=== PATIENT | male | born 1940 | race Caucasian/White ===

== ENCOUNTER 2019-08-06 08:40 | Emergency (ER) | payer MEDICARE, BC ==
[~2019-08-06] VITALS: Ht 185.4 cm; Wt 104.0 kg
[~2019-08-06 08:40] MED LIST: ESCI10TA PO; HYDR12.55 PO; LOVA20TA2 PO; MULT-1179 PO
[2019-08-06 09:20] LABS: BASOPHILS % (AUTO) 1.1 % (0-1); EOSINOPHILS # (AUTO) 0.2 X10'3 (0-0.9); EOSINOPHILS % (AUTO) 5.4 % (0-6); HEMATOCRIT 38.7 % (42.0-52.0); HEMOGLOBIN 12.9 g/dl (14.0-17.9); LYMPHOCYTES # (AUTO) 0.7 X10'3 (1.1-4.8); LYMPHOCYTES % (AUTO) 15.9 % (21-51); MEAN CORPUSCULAR HEMOGLOBIN 31.5 PG (27.0-31.0); MEAN CORPUSCULAR HGB CONC 33.2 g/dL (33.0-36.5); MEAN CORPUSCULAR VOLUME 94.9 FL (78-98); MONOCYTES # (AUTO) 0.4 X10'3 (0-0.9); MONOCYTES % (AUTO) 10.4 % (2-12); NEUTROPHILS # (AUTO) 2.8 X10'3 (1.8-7.7); NEUTROPHILS % (AUTO) 67.2 % (42-75); PLATELET COUNT 118 X10'3 (140-440); RED BLOOD COUNT 4.07 X10'6 (4.70-6.10); RED CELL DISTRIBUTION WIDTH 13.4 % (11.5-14.5); WHITE BLOOD COUNT 4.1 X10'3 (4.5-11.0)
[2019-08-06 09:35] LABS: ALANINE AMINOTRANSFERASE 22 U/L (12-78); ALBUMIN 3.2 G/DL (3.4-5.0); ALKALINE PHOSPHATASE 49 IU/L (46-116); ANION GAP 8 (8-16); ASPARTATE AMINO TRANSFERASE 26 U/L (10-37); BILIRUBIN,TOTAL 0.7 MG/DL (0.1-1.0); BLOOD UREA NITROGEN 23 MG/DL (7-18); BUN/CREATININE RATIO 15.1 (5.4-32.0); CALCIUM 8.3 MG/DL (8.5-10.1); CHLORIDE 108 MMOL/L (99-107); CREATININE 1.52 MG/DL (0.60-1.10); GLUCOSE 100 MG/DL (70-104); SODIUM 142 MMOL/L (135-145); TOTAL CARBON DIOXIDE 25.8 MMOL/L (24-32); TOTAL PROTEIN 6.5 G/DL (6.4-8.2); eGFR 44 ML/MIN
[2019-08-06] MEDS ORDERED: APIX5TAB3 PO (13:09)
[2019-08-06 13:21] VITALS: BP 153/62
== END 2019-08-06 13:24 | disposition home or self-care (01) ==
LOC: ER 08:41
DX: I82.812 Embolism and thrombosis of superficial veins of left lower extremity (principal); E78.00 Pure hypercholesterolemia, unspecified; I10 Essential (primary) hypertension; Z98.890 Other specified postprocedural states; Z79.899 Other long term (current) drug therapy
CPT/HCPCS: 36415; 80053; 85025; 85610; 93971; 99284

== ENCOUNTER 2021-09-11 16:10 | Inpatient (IN) | payer MEDICARE, BC ==
[~2021-09-11] VITALS: Ht 182.9 cm; Wt 93.0 kg
[~2021-09-11 16:10] MED LIST changes: +APIX5TAB3 PO
[2021-09-11 16:49] LABS: BASOPHILS % (AUTO) 0.9 % (0-1); EOSINOPHILS # (AUTO) 0.1 X10'3 (0-0.9); EOSINOPHILS % (AUTO) 1.4 % (0-6); HEMATOCRIT 44.1 % (42.0-52.0); HEMOGLOBIN 14.7 g/dl (14.0-17.9); LYMPHOCYTES # (AUTO) 0.3 X10'3 (1.1-4.8); LYMPHOCYTES % (AUTO) 6.2 % (21-51); MEAN CORPUSCULAR HEMOGLOBIN 33.3 PG (27.0-31.0); MEAN CORPUSCULAR HGB CONC 33.4 g/dL (33.0-36.5); MEAN CORPUSCULAR VOLUME 99.5 FL (78-98); MEAN PLATELET VOLUME 8.9 FL (7.4-10.4); MONOCYTES # (AUTO) 0.4 X10'3 (0-0.9); MONOCYTES % (AUTO) 8.3 % (2-12); NEUTROPHILS # (AUTO) 4.5 X10'3 (1.8-7.7); NEUTROPHILS % (AUTO) 83.2 % (42-75); PLATELET COUNT 133 X10'3 (140-440); RED BLOOD COUNT 4.43 X10'6 (4.70-6.10); RED CELL DISTRIBUTION WIDTH 15.9 % (11.5-14.5); WHITE BLOOD COUNT 5.4 X10'3 (4.5-11.0)
[2021-09-11 17:17] LABS: ALANINE AMINOTRANSFERASE 217 U/L (12-78); ALBUMIN/GLOBULIN RATIO 0.9 (1.1-1.5); ALKALINE PHOSPHATASE 51 IU/L (46-116); ANION GAP 16 (8-16); ASPARTATE AMINO TRANSFERASE 150 U/L (10-37); BILIRUBIN,TOTAL 1.5 MG/DL (0.1-1.0); BLOOD UREA NITROGEN 34 MG/DL (7-18); BUN/CREATININE RATIO 13.1 (5.4-32.0); CHLORIDE 101 MMOL/L (99-107); CREATININE 2.59 MG/DL (0.60-1.10); GLUCOSE 149 MG/DL (70-104); POTASSIUM 5.2 MMOL/L (3.5-5.1); SODIUM 136 MMOL/L (135-145); TOTAL CARBON DIOXIDE 19.1 MMOL/L (24-32); TOTAL PROTEIN 6.3 G/DL (6.4-8.2); eGFR 24 ML/MIN
[2021-09-11] MEDS ORDERED: furosemide 40mg/4ml inj IV ONE (17:40)
[2021-09-11] MEDS ORDERED: furosemide 10 MG/1 ML 10ml inj IV ONE (17:40)
[2021-09-11] MEDS ORDERED: LIDOcaine 2% 10ml TOPICAL JELLY (Urojet) TP ONE (18:05)
[2021-09-11] MEDS ORDERED: ondansetron/PF 4mg/2ml inj IV PRN (18:10)
[2021-09-11] MEDS ORDERED: magnesium hydroxide 30ml (MOM) UD suspension PO PRN (18:10)
[2021-09-11] MEDS ORDERED: acetaminophen 325mg tablet PO PRN ×2 (18:10)
[2021-09-11] MEDS ORDERED: morphine 2 MG/ML inj. syringe IV PRN ×2 (18:10)
[2021-09-11] MEDS ORDERED: mag hydrox/Alum hydrox/simeth 30ml oral suspension PO PRN (18:10)
[2021-09-11] MEDS ORDERED: LORA-268 PO (18:31)
[2021-09-11] MEDS ORDERED: SOTA80TA73 PO (18:31)
[2021-09-11] MEDS ORDERED: FLEC100T2 PO (18:31)
[2021-09-11] MEDS ORDERED: METO50TA16 PO (18:31)
[2021-09-11] MEDS ORDERED: ESCI20TA39 PO (18:31)
[2021-09-11] MEDS ORDERED: APIX5TAB3 PO (18:31)
[2021-09-11] MEDS ORDERED: LEVO75TA7 PO (18:31)
--- NOTE | 2021-09-11 19:25 | NUR ---
Patient resting comfortably on gurney, at bedside. Butler placed w/o problem and pending admit to the floor. I will continue to monitor.
[2021-09-11] MEDS: docusate sod 100mg capsule PO SCH (20:22)
--- NOTE | 2021-09-11 22:10 | NUR ---
Received report from IRENA Rosuseau. Awaiting patient arrival to the floor
[2021-09-11 22:50] VITALS: BP_SYST 87; BP_SYST 88; BP_SYST 91; BP_DIAS 57; BP_DIAS 67; BP_DIAS 68
--- NOTE | 2021-09-11 22:50 | NUR ---
Patient arrived to the floor via gurney accompanied by HOSPITAL NURSE. Placed in room 3019L. Patient awake and alert on 2L NC, in no apparent distress. Call light and items of frequent use within reach. Will continue to monitor
[2021-09-12] VITALS (13 sets, daily range): BP systolic 97–125; BP diastolic 44–77
[2021-09-12 04:37] LABS: BASOPHILS % (AUTO) 0.3 % (0-1); EOSINOPHILS % (AUTO) 0.1 % (0-6); HEMATOCRIT 43.9 % (42.0-52.0); HEMOGLOBIN 14.7 g/dl (14.0-17.9); LYMPHOCYTES # (AUTO) 0.4 X10'3 (1.1-4.8); LYMPHOCYTES % (AUTO) 5.3 % (21-51); MEAN CORPUSCULAR HEMOGLOBIN 33.1 PG (27.0-31.0); MEAN CORPUSCULAR HGB CONC 33.5 g/dL (33.0-36.5); MEAN CORPUSCULAR VOLUME 98.8 FL (78-98); MEAN PLATELET VOLUME 9.4 FL (7.4-10.4); MONOCYTES # (AUTO) 0.6 X10'3 (0-0.9); MONOCYTES % (AUTO) 8.7 % (2-12); NEUTROPHILS # (AUTO) 6.2 X10'3 (1.8-7.7); NEUTROPHILS % (AUTO) 85.6 % (42-75); PLATELET COUNT 120 X10'3 (140-440); RED BLOOD COUNT 4.44 X10'6 (4.70-6.10); RED CELL DISTRIBUTION WIDTH 15.5 % (11.5-14.5); WHITE BLOOD COUNT 7.3 X10'3 (4.5-11.0)
[2021-09-12 04:50] LABS: ALANINE AMINOTRANSFERASE 639 U/L (12-78); ALBUMIN 3.1 G/DL (3.4-5.0); ALKALINE PHOSPHATASE 60 IU/L (46-116); ANION GAP 13 (8-16); ASPARTATE AMINO TRANSFERASE 647 U/L (10-37); BILIRUBIN,TOTAL 1.7 MG/DL (0.1-1.0); BLOOD UREA NITROGEN 42 MG/DL (7-18); BUN/CREATININE RATIO 14.8 (5.4-32.0); CALCIUM 8.2 MG/DL (8.5-10.1); CHLORIDE 104 MMOL/L (99-107); CREATININE 2.84 MG/DL (0.60-1.10); GLUCOSE 115 MG/DL (70-104); POTASSIUM 5.4 MMOL/L (3.5-5.1); SODIUM 137 MMOL/L (135-145); TOTAL CARBON DIOXIDE 20.2 MMOL/L (24-32); TOTAL PROTEIN 6.2 G/DL (6.4-8.2); eGFR 21 ML/MIN
--- NOTE | 2021-09-12 06:10 | NUR ---
Problems reprioritized. Patient report given, questions answered & plan of care reviewed with IRENA Diaz.
--- NOTE | 2021-09-12 06:30 | NUR ---
Patient in room PCU 3017. I have received report from Mirian OSBORN and had the opportunity to ask questions and assume patient care. Patient resting comfortably in bed, all needs met at this time.
[2021-09-12] MEDS ORDERED: levoTHYROXINE 25mcg tablet PO SCH (07:00)
[2021-09-12] MEDS: docusate sod 100mg capsule PO SCH ×2 (07:23→20:23)
[2021-09-12] MEDS: furosemide 40mg/4ml inj IV SCH ×3 (07:23→20:00)
[2021-09-12] MEDS ORDERED: enoxaparin 40mg/0.4ml syringe SUBCUT SCH (08:00)
--- NOTE | 2021-09-12 10:46 | NUR ---
Page Sent PAGER ID: [phone] MESSAGE: Room 3017A; Efrain Gan: Home med rec is complete and ready for conversion. [place] [id number]
[2021-09-12] MEDS ORDERED: flecainide 50mg tablet PO SCH (11:10)
[2021-09-12] MEDS ORDERED: LORazepam 0.5 MG tablet PO PRN (13:05)
--- NOTE | 2021-09-12 13:21 | NUR ---
PAGER ID: [phone] MESSAGE: Room 3017A; Efrain Gan: Patient is asking to eat, unsure of plan for patient as far as keeping NPO status for potential procedure today. [place] [id number]. Patient and patients (at bedside) are inquiring on status of procedure. Paged doctor.
[2021-09-12] MEDS ORDERED: MIDAZolam 1mg/ml 10ml vial IV ONE (13:30)
[2021-09-12] MEDS ORDERED: fentaNYL/PF 50MCG/1 ML 2ML syringe IV ONE (13:30)
--- NOTE | 2021-09-12 18:01 | NUR ---
Student documentation: I have reviewed and agree with all interventions, assessments performed and documented by Sacha Baltazar.
--- NOTE | 2021-09-12 18:02 | NUR ---
Student Medication Administration: For this medication-pass time frame, all medication were reviewed, dispensed, administered and documented per hospital policy by Xavier Baltazar.
--- NOTE | 2021-09-12 18:39 | NUR ---
Problems reprioritized. Patient report given, questions answered & plan of care reviewed with Ramiro OSBORN.
--- NOTE | 2021-09-12 18:40 | NUR ---
Patient in room PCU 3017. I have received report from NEL OSBORN and had the opportunity to ask questions and assume patient care.
[2021-09-12] MEDS ORDERED: apixaban 5mg tablet PO SCH (20:00)
[2021-09-12] MEDS: metoprolol tartrate 50mg tablet PO SCH (20:00)
[2021-09-12] MEDS: apixaban 2.5mg tablet PO SCH (20:23)
[2021-09-12] MEDS: flecainide 50mg tablet PO SCH (20:27)
[2021-09-13] VITALS (11 sets, daily range): BP systolic 85–129; BP diastolic 44–100
--- NOTE | 2021-09-13 06:30 | NUR ---
Problems reprioritized. Patient report given, questions answered & plan of care reviewed with DIMITRY OSBORN.
[2021-09-13 06:49] LABS: BASOPHILS % (AUTO) 0.4 % (0-1); EOSINOPHILS % (AUTO) 0.1 % (0-6); HEMATOCRIT 42.3 % (42.0-52.0); HEMOGLOBIN 14.1 g/dl (14.0-17.9); LYMPHOCYTES # (AUTO) 0.5 X10'3 (1.1-4.8); LYMPHOCYTES % (AUTO) 6.8 % (21-51); MEAN CORPUSCULAR HEMOGLOBIN 33.2 PG (27.0-31.0); MEAN CORPUSCULAR HGB CONC 33.4 g/dL (33.0-36.5); MEAN CORPUSCULAR VOLUME 99.4 FL (78-98); MEAN PLATELET VOLUME 9.2 FL (7.4-10.4); MONOCYTES # (AUTO) 0.6 X10'3 (0-0.9); MONOCYTES % (AUTO) 9.5 % (2-12); NEUTROPHILS # (AUTO) 5.5 X10'3 (1.8-7.7); NEUTROPHILS % (AUTO) 83.2 % (42-75); PLATELET COUNT 119 X10'3 (140-440); RED BLOOD COUNT 4.26 X10'6 (4.70-6.10); RED CELL DISTRIBUTION WIDTH 15.8 % (11.5-14.5); WHITE BLOOD COUNT 6.6 X10'3 (4.5-11.0)
[2021-09-13 07:00] LABS: ALBUMIN 2.9 G/DL (3.4-5.0); ANION GAP 13 (8-16); BLOOD UREA NITROGEN 56 MG/DL (7-18); BUN/CREATININE RATIO 17.6 (5.4-32.0); CALCIUM 8.3 MG/DL (8.5-10.1); CHLORIDE 104 MMOL/L (99-107); CREATININE 3.18 MG/DL (0.60-1.10); GLUCOSE 99 MG/DL (70-104); POTASSIUM 5.1 MMOL/L (3.5-5.1); SODIUM 140 MMOL/L (135-145); TOTAL CARBON DIOXIDE 23.3 MMOL/L (24-32); eGFR 19 ML/MIN
[2021-09-13] MEDS: apixaban 2.5mg tablet PO SCH ×2 (08:46→21:35)
[2021-09-13] MEDS: levoTHYROXINE 75mcg tablet PO SCH (08:46)
[2021-09-13] MEDS: atorvastatin 10mg tablet PO SCH (08:46)
[2021-09-13] MEDS: docusate sod 100mg capsule PO SCH ×2 (08:48→21:36)
[2021-09-13] MEDS: ESCITALOPRAM OXALATE 5 MG TABLET PO SCH (08:48)
[2021-09-13] MEDS: flecainide 50mg tablet PO SCH ×2 (08:48→21:36)
[2021-09-13] MEDS: metoprolol tartrate 50mg tablet PO SCH (08:49)
[2021-09-13] MEDS: furosemide 40mg/4ml inj IV SCH ×2 (08:49→21:35)
[2021-09-13] MEDS: DOBUTamine-DoBUTrex 500mg/D5W 250 ML IV SCH (09:54)
[2021-09-13] MEDS ORDERED: ondansetron 4mg rapidly disintigrating tab PO PRN (11:35)
--- NOTE | 2021-09-13 18:23 | NUR ---
Orientee documentation: I have reviewed and agree with all interventions, assessments performed and documented by IRENA Velazquez.
--- NOTE | 2021-09-13 18:37 | NUR ---
Problems reprioritized. Patient report given, questions answered & plan of care reviewed with IRENA Rhodes. Addendum: 09/13/21 at 1842 by Roslyn Brewer RN Gave report to IRENA Daniels not IRENA Rhodes
--- NOTE | 2021-09-13 21:46 | NUR ---
patient restingg in bed. denies pain or discomfort. all safety measures in place. Will continue to monitor patient.
[2021-09-14] VITALS (11 sets, daily range): BP systolic 95–129; BP diastolic 39–98
[2021-09-14 06:14] LABS: BASOPHILS % (AUTO) 0.7 % (0-1); EOSINOPHILS # (AUTO) 0.1 X10'3 (0-0.9); EOSINOPHILS % (AUTO) 2.1 % (0-6); HEMATOCRIT 40.9 % (42.0-52.0); HEMOGLOBIN 13.8 g/dl (14.0-17.9); LYMPHOCYTES # (AUTO) 0.3 X10'3 (1.1-4.8); LYMPHOCYTES % (AUTO) 6.1 % (21-51); MEAN CORPUSCULAR HEMOGLOBIN 33.2 PG (27.0-31.0); MEAN CORPUSCULAR HGB CONC 33.8 g/dL (33.0-36.5); MEAN CORPUSCULAR VOLUME 98.2 FL (78-98); MONOCYTES # (AUTO) 0.5 X10'3 (0-0.9); MONOCYTES % (AUTO) 9.6 % (2-12); NEUTROPHILS # (AUTO) 4.1 X10'3 (1.8-7.7); NEUTROPHILS % (AUTO) 81.5 % (42-75); PLATELET COUNT 116 X10'3 (140-440); RED BLOOD COUNT 4.16 X10'6 (4.70-6.10); RED CELL DISTRIBUTION WIDTH 15.8 % (11.5-14.5)
--- NOTE | 2021-09-14 06:25 | NUR ---
Patient in room PCU 3017. I have received report from keshav OSBORN and had the opportunity to ask questions and assume patient care.
[2021-09-14 06:26] LABS: ALANINE AMINOTRANSFERASE 683 U/L (12-78); ALBUMIN 2.9 G/DL (3.4-5.0); ALKALINE PHOSPHATASE 60 IU/L (46-116); ANION GAP 10 (8-16); ASPARTATE AMINO TRANSFERASE 334 U/L (10-37); BILIRUBIN,TOTAL 1.3 MG/DL (0.1-1.0); BLOOD UREA NITROGEN 56 MG/DL (7-18); BUN/CREATININE RATIO 19.9 (5.4-32.0); CALCIUM 7.9 MG/DL (8.5-10.1); CHLORIDE 104 MMOL/L (99-107); CREATININE 2.82 MG/DL (0.60-1.10); GLUCOSE 92 MG/DL (70-104); POTASSIUM 3.8 MMOL/L (3.5-5.1); SODIUM 141 MMOL/L (135-145); TOTAL CARBON DIOXIDE 26.8 MMOL/L (24-32); TOTAL PROTEIN 5.9 G/DL (6.4-8.2); eGFR 22 ML/MIN
[2021-09-14] MEDS: docusate sod 100mg capsule PO SCH ×2 (07:48→20:46)
[2021-09-14] MEDS: flecainide 50mg tablet PO SCH ×2 (07:48→20:46)
[2021-09-14] MEDS: atorvastatin 10mg tablet PO SCH (07:48)
[2021-09-14] MEDS: apixaban 2.5mg tablet PO SCH ×2 (07:49→20:46)
[2021-09-14] MEDS: levoTHYROXINE 75mcg tablet PO SCH (07:49)
[2021-09-14] MEDS: ESCITALOPRAM OXALATE 5 MG TABLET PO SCH (07:49)
[2021-09-14] MEDS: furosemide 40mg/4ml inj IV SCH ×2 (08:56→20:46)
--- NOTE | 2021-09-14 11:30 | NUR ---
per Dr. Bray; Pt's torres cath was removed. 10 ml of saline removed from balloon tip. Pt tolerated removal well. Will continue to monitor Pt to make sure they void within 4 hours of torres removal.
--- NOTE | 2021-09-14 18:45 | NUR ---
Problems reprioritized. Patient report given, questions answered & plan of care reviewed with Denisse OSBORN.
--- NOTE | 2021-09-14 18:45 | NUR ---
Pt in bed [id number] voiced any complaints. Plan of care verbalized to pt. Call light , urinal and bedside table place within reach. IV medication infusing well.
[2021-09-14] MEDS: DOBUTamine-DoBUTrex 500mg/D5W 250 ML IV SCH (20:17)
[2021-09-15] VITALS: BP 97/82
[2021-09-15 02:00] VITALS: BP 154/73
[2021-09-15 06:00] VITALS: BP_SYST 151; BP_SYST 154; BP_DIAS 68; BP_DIAS 73
--- NOTE | 2021-09-15 06:00 | NUR ---
Pt slept well denied any discomfort.. IV medication infusing well.
--- NOTE | 2021-09-15 06:05 | NUR ---
Patient in room PCU 3017. I have received report from Denisse OSBORN and had the opportunity to ask questions and assume patient care.
[2021-09-15 06:22] LABS: BASOPHILS % (AUTO) 0.7 % (0-1); EOSINOPHILS # (AUTO) 0.1 X10'3 (0-0.9); HEMATOCRIT 45.1 % (42.0-52.0); HEMOGLOBIN 15.2 g/dl (14.0-17.9); LYMPHOCYTES # (AUTO) 0.3 X10'3 (1.1-4.8); LYMPHOCYTES % (AUTO) 7.5 % (21-51); MEAN CORPUSCULAR HEMOGLOBIN 32.7 PG (27.0-31.0); MEAN CORPUSCULAR HGB CONC 33.7 g/dL (33.0-36.5); MEAN PLATELET VOLUME 8.1 FL (7.4-10.4); MONOCYTES # (AUTO) 0.5 X10'3 (0-0.9); MONOCYTES % (AUTO) 11.4 % (2-12); NEUTROPHILS # (AUTO) 3.2 X10'3 (1.8-7.7); NEUTROPHILS % (AUTO) 78.4 % (42-75); PLATELET COUNT 125 X10'3 (140-440); RED BLOOD COUNT 4.65 X10'6 (4.70-6.10); RED CELL DISTRIBUTION WIDTH 15.8 % (11.5-14.5); WHITE BLOOD COUNT 4.1 X10'3 (4.5-11.0)
[2021-09-15 06:41] LABS: ALANINE AMINOTRANSFERASE 584 U/L (12-78); ALBUMIN 3.2 G/DL (3.4-5.0); ALKALINE PHOSPHATASE 64 IU/L (46-116); ANION GAP 9 (8-16); ASPARTATE AMINO TRANSFERASE 183 U/L (10-37); BILIRUBIN,TOTAL 1.6 MG/DL (0.1-1.0); BLOOD UREA NITROGEN 47 MG/DL (7-18); BUN/CREATININE RATIO 19.1 (5.4-32.0); CALCIUM 8.1 MG/DL (8.5-10.1); CHLORIDE 101 MMOL/L (99-107); CREATININE 2.46 MG/DL (0.60-1.10); GLUCOSE 88 MG/DL (70-104); POTASSIUM 3.4 MMOL/L (3.5-5.1); SODIUM 142 MMOL/L (135-145); TOTAL CARBON DIOXIDE 31.8 MMOL/L (24-32); TOTAL PROTEIN 6.5 G/DL (6.4-8.2); eGFR 25 ML/MIN
[2021-09-15 08:00] VITALS: BP_SYST 120; BP_SYST 127; BP_SYST 89; BP_DIAS 53; BP_DIAS 65; BP_DIAS 70
[2021-09-15] MEDS: docusate sod 100mg capsule PO SCH (08:16)
[2021-09-15] MEDS: flecainide 50mg tablet PO SCH (08:17)
[2021-09-15] MEDS: atorvastatin 10mg tablet PO SCH (08:17)
[2021-09-15] MEDS: apixaban 2.5mg tablet PO SCH (08:17)
[2021-09-15] MEDS: ESCITALOPRAM OXALATE 5 MG TABLET PO SCH (08:17)
[2021-09-15] MEDS: levoTHYROXINE 75mcg tablet PO SCH (08:17)
[2021-09-15] MEDS: furosemide 40mg/4ml inj IV SCH (08:18)
[2021-09-15] MEDS ORDERED: potassium Cl 20 mEq SR tablet PO PRN ×2 (10:05)
[2021-09-15] MEDS ORDERED: magnesium 4gm in 100ml NS 100 ML IV PRN (10:05)
[2021-09-15] MEDS ORDERED: potassium Cl 40MEQ/1/2NS 520ml 520 ML IV PRN (10:05)
[2021-09-15] MEDS ORDERED: magnesium Cl slow-release 64mg tablet PO PRN (10:05)
--- NOTE | 2021-09-15 10:29 | NUR ---
Spoke with Dr. Li concerning Pt's Dobutamine drip. Will turn drip down to 1mcg/kg/min and then off after one hour, and then will ambulate Pt.
--- NOTE | 2021-09-15 10:32 | NUR ---
Pt"s dobutamine drip turned down to 1mcg/kg/min
--- NOTE | 2021-09-15 11:59 | NUR ---
Pt's dobutamine drip turned off. Will continue to monitor Pt as needed.
--- NOTE | 2021-09-15 12:57 | NUR ---
Initial: Pt admitted for decompensated heart failure. Currently on a heart healthy diet with improving PO intake, initially 25% PO intake though up to 50% PO intake with 75% PO intake at breakfast this morning. LBM 09/12, receiving routine bowel care with additional PRN bowel care available. No nutrition intervention implemented at this time. Will continue to follow and make recommendations as appropriate pending further trends in PO intake. Recommendations: 1) Continue heart healthy diet; advance to regular as medically indicated given geriatric age 2) Routine bowel care 3) Weekly scaled weights Addendum: 09/15/21 at [address] Amended: Links added.
[2021-09-15 13:00] VITALS: BP 112/94
--- NOTE | 2021-09-15 13:48 | NUR ---
PAGER ID: [phone] MESSAGE: Re: Efrain Causey. Room: [facility]. Dobutamine drip is off. Pt walked 300ft with FWW on room air. Pt was orthostatic but not symptomatic. Do you still want to DC? -Cong [facility] #[id number] -Dr. Li paged concerning Pt's ambulatory results.
[2021-09-15] MEDS ORDERED: FURO20TA4 PO (14:22)
[2021-09-15] MEDS ORDERED: SOTA80TA73 PO (14:22)
--- NOTE | 2021-09-15 16:30 | NUR ---
Pt DC'd home with . Pt alert and oriented and vitals WNL. Per Dr. Li; Pt is stable for DC. DC paperwork printed out and gone over with Pt and . Allowed Pt and to ask questions concerning DC and then answered them. Pt has follow up lotus with PCP on 09/22/21 and follow up with Dr. Rodrigues on 10/04/21. New prescriptions called into [facility] pharmacy. Pt wearing life vest when DC'd. Pt's belongings gathered and sent with Pt. [facility] private vehicle for home.
[2021-09-15] MEDS ORDERED: K and/or MAG REPLACEMENT MC SCH (20:00)
== END 2021-09-15 16:30 | disposition home or self-care (01) | DRG 291 ==
LOC: ER 16:11 → ED HOLD 18:14 → PCU 3S 22:50
PROVIDERS: ADMIT Internal Medicine; ATTEND Internal Medicine
PROC: 5A2204Z Restoration of Cardiac Rhythm, Single (ICD-10-PCS; principal; 2021-09-12)
DX: I13.0 Hypertensive heart and chronic kidney disease with heart failure and stage 1 through stage 4 chronic kidney disease, or unspecified chronic kidney disease (principal); I50.23 Acute on chronic systolic (congestive) heart failure; N17.9 Acute kidney failure, unspecified; I42.9 Cardiomyopathy, unspecified; I48.0 Paroxysmal atrial fibrillation; N18.30 Chronic kidney disease, stage 3 unspecified; F32.A Depression, unspecified; E78.5 Hyperlipidemia, unspecified; R74.01 Elevation of levels of liver transaminase levels; R09.02 Hypoxemia; I95.9 Hypotension, unspecified; R74.8 Abnormal levels of other serum enzymes; I44.0 Atrioventricular block, first degree; Z20.822 Contact with and (suspected) exposure to COVID-19; E03.9 Hypothyroidism, unspecified; I08.1 Rheumatic disorders of both mitral and tricuspid valves; E78.00 Pure hypercholesterolemia, unspecified; Z85.51 Personal history of malignant neoplasm of bladder; Z85.46 Personal history of malignant neoplasm of prostate; Z90.79 Acquired absence of other genital organ(s); Z90.5 Acquired absence of kidney; Z88.2 Allergy status to sulfonamides; Z79.899 Other long term (current) drug therapy
CPT/HCPCS: 36415; 71045; 76700; 80048; 80053; 83880; 84443; 84484; 85025; 85610; 85730; 87081; 87635; 93005; 93306; 94760; 94799; 96374; 97116; 97161; 97530; 99285; C9803; G0378; J1250; J1650; J1940; J2250; J3010

== ENCOUNTER 2021-09-17 13:18 | Inpatient (IN) | payer MEDICARE, BC ==
[~2021-09-17] VITALS: Ht 182.9 cm; Wt 109.1 kg
[~2021-09-17 13:18] MED LIST changes: -ESCI10TA PO; +ESCI20TA39 PO; +FLEC100T2 PO; +FURO20TA4 PO; -HYDR12.55 PO; +LEVO75TA7 PO; +LORA-268 PO; -MULT-1179 PO; +SOTA80TA73 PO
[2021-09-17 13:44] LABS: BASOPHILS % (AUTO) 0.8 % (0-1); EOSINOPHILS # (AUTO) 0.2 X10'3 (0-0.9); EOSINOPHILS % (AUTO) 3.5 % (0-6); HEMOGLOBIN 16.7 g/dl (14.0-17.9); LYMPHOCYTES # (AUTO) 0.5 X10'3 (1.1-4.8); LYMPHOCYTES % (AUTO) 9.7 % (21-51); MEAN CORPUSCULAR HEMOGLOBIN 32.8 PG (27.0-31.0); MEAN CORPUSCULAR HGB CONC 33.4 g/dL (33.0-36.5); MEAN CORPUSCULAR VOLUME 98.1 FL (78-98); MONOCYTES # (AUTO) 0.8 X10'3 (0-0.9); NEUTROPHILS # (AUTO) 3.5 X10'3 (1.8-7.7); PLATELET COUNT 169 X10'3 (140-440); RED CELL DISTRIBUTION WIDTH 15.8 % (11.5-14.5)
--- NOTE | 2021-09-17 13:45 | NUR ---
Pt is somulent. He asked for water in a soft voice. Follows commands. Zoll pacer pads on due to pt's variable rhythm, 3rd degree, multifolcal PVCs.
[2021-09-17 13:56] LABS: ALANINE AMINOTRANSFERASE 304 U/L (12-78); ALBUMIN 3.4 G/DL (3.4-5.0); ALBUMIN/GLOBULIN RATIO 0.9 (1.1-1.5); ALKALINE PHOSPHATASE 72 IU/L (46-116); ANION GAP 10 (8-16); ASPARTATE AMINO TRANSFERASE 64 U/L (10-37); BILIRUBIN,TOTAL 1.1 MG/DL (0.1-1.0); BLOOD UREA NITROGEN 45 MG/DL (7-18); BUN/CREATININE RATIO 20.3 (5.4-32.0); CALCIUM 8.7 MG/DL (8.5-10.1); CHLORIDE 100 MMOL/L (99-107); CREATININE 2.22 MG/DL (0.60-1.10); GLUCOSE 135 MG/DL (70-104); POTASSIUM 4.4 MMOL/L (3.5-5.1); SODIUM 139 MMOL/L (135-145); TOTAL CARBON DIOXIDE 29.4 MMOL/L (24-32); TOTAL PROTEIN 7.3 G/DL (6.4-8.2); eGFR 28 ML/MIN
[2021-09-17 14:04] LABS: MAGNESIUM 2.4 MG/DL (1.5-2.4)
--- NOTE | 2021-09-17 14:16 | NUR ---
Pt's is at the bedside. She brought the Zoll halter. Pt is now alert and oriented.
[2021-09-17] MEDS ORDERED: potassium Cl 40MEQ/1/2NS 520ml 520 ML IV PRN ×2 (15:25)
[2021-09-17] MEDS ORDERED: acetaminophen 325mg tablet PO PRN ×2 (15:25)
[2021-09-17] MEDS ORDERED: ondansetron/PF 4mg/2ml inj IV PRN (15:25)
[2021-09-17] MEDS ORDERED: potassium Cl 20 mEq SR tablet PO PRN ×2 (15:25)
[2021-09-17] MEDS ORDERED: magnesium 2GM in 50ml NS 50 ML IV PRN (15:25)
[2021-09-17] MEDS ORDERED: mag hydrox/Alum hydrox/simeth 30ml oral suspension PO PRN (15:25)
[2021-09-17] MEDS ORDERED: magnesium 4gm in 100ml NS 100 ML IV PRN (15:25)
[2021-09-17] MEDS ORDERED: magnesium Cl slow-release 64mg tablet PO PRN (15:25)
[2021-09-17] MEDS: normal saline 1000ml 1,000 ML IV SCH (16:22)
[2021-09-17] MEDS ORDERED: temazepam 15mg capsule PO PRN (21:00)
[2021-09-17] MEDS: apixaban 2.5mg tablet PO SCH (21:21)
[2021-09-17] MEDS: K and/or MAG REPLACEMENT MC SCH (21:23)
[2021-09-18] MEDS: levoTHYROXINE 75mcg tablet PO SCH (07:00)
[2021-09-18] MEDS: atorvastatin 10mg tablet PO SCH (08:00)
[2021-09-18] MEDS: ESCITALOPRAM OXALATE 5 MG TABLET PO SCH (08:00)
[2021-09-18 08:25] LABS: BASOPHILS % (AUTO) 0.8 % (0-1); EOSINOPHILS # (AUTO) 0.2 X10'3 (0-0.9); EOSINOPHILS % (AUTO) 4.2 % (0-6); HEMATOCRIT 46.3 % (42.0-52.0); HEMOGLOBIN 15.5 g/dl (14.0-17.9); LYMPHOCYTES # (AUTO) 0.5 X10'3 (1.1-4.8); LYMPHOCYTES % (AUTO) 11.1 % (21-51); MEAN CORPUSCULAR HEMOGLOBIN 32.6 PG (27.0-31.0); MEAN CORPUSCULAR HGB CONC 33.5 g/dL (33.0-36.5); MEAN CORPUSCULAR VOLUME 97.3 FL (78-98); MONOCYTES # (AUTO) 0.6 X10'3 (0-0.9); MONOCYTES % (AUTO) 14.6 % (2-12); NEUTROPHILS # (AUTO) 2.8 X10'3 (1.8-7.7); NEUTROPHILS % (AUTO) 69.3 % (42-75); PLATELET COUNT 120 X10'3 (140-440); RED BLOOD COUNT 4.75 X10'6 (4.70-6.10); RED CELL DISTRIBUTION WIDTH 15.9 % (11.5-14.5); WHITE BLOOD COUNT 4.1 X10'3 (4.5-11.0)
[2021-09-18 08:40] LABS: ALANINE AMINOTRANSFERASE 202 U/L (12-78); ALBUMIN 2.8 G/DL (3.4-5.0); ALBUMIN/GLOBULIN RATIO 0.8 (1.1-1.5); ALKALINE PHOSPHATASE 55 IU/L (46-116); ANION GAP 7 (8-16); ASPARTATE AMINO TRANSFERASE 43 U/L (10-37); BLOOD UREA NITROGEN 40 MG/DL (7-18); BUN/CREATININE RATIO 21.4 (5.4-32.0); CALCIUM 8.3 MG/DL (8.5-10.1); CHLORIDE 104 MMOL/L (99-107); CREATININE 1.87 MG/DL (0.60-1.10); GLUCOSE 88 MG/DL (70-104); POTASSIUM 4.3 MMOL/L (3.5-5.1); SODIUM 141 MMOL/L (135-145); TOTAL CARBON DIOXIDE 30.3 MMOL/L (24-32); TOTAL PROTEIN 6.1 G/DL (6.4-8.2); eGFR 35 ML/MIN
[2021-09-18 08:43] LABS: MAGNESIUM 2.4 MG/DL (1.5-2.4)
--- NOTE | 2021-09-18 08:49 | NUR ---
padmini albert at bedside assessinf the pt clarified that pt does not have life vest on and pt is on pads just in case for pacing ,as per pa you can take off the cardiac pads as pt has uneventful night. at bedside , has life jacket at home she will bring today and orderd to place it on as we recive it.
--- NOTE | 2021-09-18 09:10 | NUR ---
SPOKE TO DR JOHN REGARDING PT CONDITION ,INFORMED THAT PT IS NOT ON LIFE JACKET AND IS GOING TO GET THE JACKET FROM HOME ,PT KEPT NPO AND HAVE NOT GIVEN ANY MEDS TO THE PT ,PT NOT GIVEN BLD THINNER BECAUSE WE DO NOT KNOW WHEN WILL PT BE GOING FOR ANY PROCEDURE ,LUC BEAULIEU SEEN THE PT IN ER.ALSO SBAR TO HOOD OSBORN.
[2021-09-18 10:00] VITALS: BP 140/69
[2021-09-18] MEDS: normal saline 1000ml 1,000 ML IV SCH (11:25)
[2021-09-18] MEDS: amiodarone 200mg tablet PO SCH ×2 (13:00→20:58)
[2021-09-18] MEDS ORDERED: ondansetron 4mg rapidly disintigrating tab PO PRN (14:40)
[2021-09-18 15:00] VITALS: BP 132/68
--- NOTE | 2021-09-18 18:15 | NUR ---
Patient in room PCU 3017. I have received report from IRENA Rosenbaum and had the opportunity to ask questions and assume patient care.
[2021-09-18 19:00] VITALS: BP 135/86
[2021-09-18 20:00] VITALS: BP 155/86
[2021-09-18] MEDS: K and/or MAG REPLACEMENT MC SCH (20:00)
[2021-09-18] MEDS: apixaban 2.5mg tablet PO SCH ×2 (20:57→20:58)
[2021-09-18 23:00] VITALS: BP 136/75
[2021-09-19 03:00] VITALS: BP 134/71
--- NOTE | 2021-09-19 06:27 | NUR ---
Problems reprioritized. Patient report given, questions answered & plan of care reviewed with IRENA Castillo.
[2021-09-19 06:54] LABS: BASOPHILS % (AUTO) 0.9 % (0-1); EOSINOPHILS # (AUTO) 0.2 X10'3 (0-0.9); EOSINOPHILS % (AUTO) 4.2 % (0-6); HEMATOCRIT 50.5 % (42.0-52.0); HEMOGLOBIN 16.7 g/dl (14.0-17.9); LYMPHOCYTES # (AUTO) 0.4 X10'3 (1.1-4.8); LYMPHOCYTES % (AUTO) 8.4 % (21-51); MEAN CORPUSCULAR HEMOGLOBIN 32.5 PG (27.0-31.0); MEAN CORPUSCULAR VOLUME 98.5 FL (78-98); MEAN PLATELET VOLUME 7.7 FL (7.4-10.4); MONOCYTES # (AUTO) 0.6 X10'3 (0-0.9); MONOCYTES % (AUTO) 12.7 % (2-12); NEUTROPHILS # (AUTO) 3.5 X10'3 (1.8-7.7); NEUTROPHILS % (AUTO) 73.8 % (42-75); PLATELET COUNT 121 X10'3 (140-440); RED BLOOD COUNT 5.13 X10'6 (4.70-6.10); RED CELL DISTRIBUTION WIDTH 16.3 % (11.5-14.5); WHITE BLOOD COUNT 4.7 X10'3 (4.5-11.0)
[2021-09-19] MEDS: levoTHYROXINE 75mcg tablet PO SCH (07:00)
[2021-09-19] MEDS: normal saline 1000ml 1,000 ML IV SCH (07:25)
[2021-09-19 08:00] VITALS: BP 149/66
[2021-09-19] MEDS: apixaban 2.5mg tablet PO SCH ×2 (08:00→08:55)
[2021-09-19] MEDS: K and/or MAG REPLACEMENT MC SCH (08:00)
[2021-09-19 08:27] LABS: ALANINE AMINOTRANSFERASE 208 U/L (12-78); ALBUMIN 3.1 G/DL (3.4-5.0); ALBUMIN/GLOBULIN RATIO 0.9 (1.1-1.5); ALKALINE PHOSPHATASE 63 IU/L (46-116); ANION GAP 10 (8-16); ASPARTATE AMINO TRANSFERASE 67 U/L (10-37); BILIRUBIN,TOTAL 1.5 MG/DL (0.1-1.0); BLOOD UREA NITROGEN 34 MG/DL (7-18); BUN/CREATININE RATIO 20.2 (5.4-32.0); CALCIUM 8.7 MG/DL (8.5-10.1); CHLORIDE 106 MMOL/L (99-107); CREATININE 1.68 MG/DL (0.60-1.10); GLUCOSE 92 MG/DL (70-104); MAGNESIUM 2.4 MG/DL (1.5-2.4); POTASSIUM 4.4 MMOL/L (3.5-5.1); SODIUM 143 MMOL/L (135-145); TOTAL CARBON DIOXIDE 27.4 MMOL/L (24-32); TOTAL PROTEIN 6.7 G/DL (6.4-8.2); eGFR 39 ML/MIN
[2021-09-19] MEDS: amiodarone 200mg tablet PO SCH ×3 (08:55→20:19)
[2021-09-19] MEDS: atorvastatin 10mg tablet PO SCH (08:55)
[2021-09-19] MEDS: ESCITALOPRAM OXALATE 5 MG TABLET PO SCH (08:55)
[2021-09-19 12:00] VITALS: BP 146/51
[2021-09-19] MEDS ORDERED: nitroGLYCERIN-Tridil 50MG/D5W 250 ML IV ONE (15:08)
[2021-09-19] MEDS ORDERED: fentaNYL/PF 50MCG/1 ML 2ML syringe ONE (15:08)
[2021-09-19] MEDS ORDERED: verapamil 2.5 mg/ml inj IV ONE (15:08)
[2021-09-19] MEDS ORDERED: iohexol 350MG/ML 100ml bottle IV ONE (15:09)
[2021-09-19] MEDS ORDERED: midazolam 1 mg/ML 2ml injection ONE (15:09)
[2021-09-19] MEDS ORDERED: LIDOcaine 1% (10mg/ml)w/preservative injection 20ml MDV ONE (15:09)
[2021-09-19] MEDS ORDERED: heparin 1,000unit/ml 10ml vial 10 ML ONE (15:09)
--- NOTE | 2021-09-19 15:34 | NUR ---
Pt picked up for lab support service tech at 1530, followed and will be going to the waiting room. All questions answered.
[2021-09-19 16:00] VITALS: BP 139/59
--- NOTE | 2021-09-19 18:10 | NUR ---
Patient in room PCU 3017. I have received report from IRENA Castillo and had the opportunity to ask questions and assume patient care.
[2021-09-19 20:00] VITALS: BP_SYST 128; BP_SYST 132; BP_DIAS 65; BP_DIAS 70
[2021-09-20] VITALS: BP 111/59
[2021-09-20] MEDS: normal saline 1000ml 1,000 ML IV SCH (03:25)
[2021-09-20 04:00] VITALS: BP 103/42
[2021-09-20 06:00] VITALS: BP 133/59
--- NOTE | 2021-09-20 06:00 | NUR ---
Patient in room PCU 3017. I have received report from Meagan OSBORN and had the opportunity to ask questions and assume patient care.
[2021-09-20 06:51] LABS: BASOPHILS % (AUTO) 0.5 % (0-1); EOSINOPHILS # (AUTO) 0.2 X10'3 (0-0.9); EOSINOPHILS % (AUTO) 2.4 % (0-6); HEMATOCRIT 48.3 % (42.0-52.0); HEMOGLOBIN 16.4 g/dl (14.0-17.9); LYMPHOCYTES # (AUTO) 0.4 X10'3 (1.1-4.8); LYMPHOCYTES % (AUTO) 5.4 % (21-51); MEAN CORPUSCULAR HGB CONC 33.9 g/dL (33.0-36.5); MEAN CORPUSCULAR VOLUME 97.2 FL (78-98); MEAN PLATELET VOLUME 7.9 FL (7.4-10.4); MONOCYTES # (AUTO) 0.9 X10'3 (0-0.9); NEUTROPHILS % (AUTO) 79.7 % (42-75); PLATELET COUNT 124 X10'3 (140-440); RED BLOOD COUNT 4.97 X10'6 (4.70-6.10); RED CELL DISTRIBUTION WIDTH 15.9 % (11.5-14.5); WHITE BLOOD COUNT 7.5 X10'3 (4.5-11.0)
[2021-09-20 07:36] LABS: ALANINE AMINOTRANSFERASE 239 U/L (12-78); ALBUMIN 2.9 G/DL (3.4-5.0); ALBUMIN/GLOBULIN RATIO 0.8 (1.1-1.5); ALKALINE PHOSPHATASE 77 IU/L (46-116); ANION GAP 8 (8-16); ASPARTATE AMINO TRANSFERASE 143 U/L (10-37); BILIRUBIN,TOTAL 1.9 MG/DL (0.1-1.0); BLOOD UREA NITROGEN 27 MG/DL (7-18); BUN/CREATININE RATIO 18.2 (5.4-32.0); CALCIUM 8.5 MG/DL (8.5-10.1); CHLORIDE 106 MMOL/L (99-107); CREATININE 1.48 MG/DL (0.60-1.10); GLUCOSE 99 MG/DL (70-104); MAGNESIUM 2.2 MG/DL (1.5-2.4); SODIUM 141 MMOL/L (135-145); TOTAL CARBON DIOXIDE 27.1 MMOL/L (24-32); TOTAL PROTEIN 6.6 G/DL (6.4-8.2); eGFR 45 ML/MIN
[2021-09-20 07:44] LABS: POTASSIUM 4.4 MMOL/L (3.5-5.1)
[2021-09-20] MEDS: atorvastatin 10mg tablet PO SCH (08:00)
[2021-09-20] MEDS: amiodarone 200mg tablet PO SCH ×2 (08:11→12:15)
[2021-09-20] MEDS: levoTHYROXINE 75mcg tablet PO SCH (08:12)
[2021-09-20] MEDS: apixaban 2.5mg tablet PO SCH (08:12)
[2021-09-20] MEDS: ESCITALOPRAM OXALATE 5 MG TABLET PO SCH (08:13)
[2021-09-20] MEDS: K and/or MAG REPLACEMENT MC SCH (08:16)
[2021-09-20] MEDS ORDERED: AMIO200T67 PO (09:57)
[2021-09-20 11:00] VITALS: BP 121/70
[2021-09-20 15:00] VITALS: BP 115/67
--- NOTE | 2021-09-20 16:20 | NUR ---
Patient stable for discharge per Dr. Rodrigues and Dr. Freeman. DC'd tele and PIV with cannula intact. patient verbalized understanding of discharge instructions, new medication regimen and the importance of follow up care. New prescriptions were sent electronicallt to [facility]. Patient was advised to hold eliquis until notified otherwise why Dr Rodrigues. Patient was advised of appointment with Dr Rodrigues at 530am tomorrow morning for an implanted defibrillator. Patient along with belongings were escorted to the lobby by the [facility] for transport home by his spouse.
== END 2021-09-20 16:12 | disposition home or self-care (01) | DRG 280 ==
LOC: ER 13:19 → ED HOLD 15:26 → PCU 3S 09-18 09:33
PROVIDERS: ADMIT Internal Medicine; ATTEND Internal Medicine
PROC: 4A023N7 Measurement of Cardiac Sampling and Pressure, Left Heart, Percutaneous Approach (ICD-10-PCS; principal; 2021-09-19)
PROC: B2111ZZ Fluoroscopy of Multiple Coronary Arteries using Low Osmolar Contrast (ICD-10-PCS; 2021-09-19)
PROC: B2151ZZ Fluoroscopy of Left Heart using Low Osmolar Contrast (ICD-10-PCS; 2021-09-19)
DX: I47.2 Ventricular tachycardia (principal); I50.23 Acute on chronic systolic (congestive) heart failure; I21.A1 Myocardial infarction type 2; I13.2 Hypertensive heart and chronic kidney disease with heart failure and with stage 5 chronic kidney disease, or end stage renal disease; N18.5 Chronic kidney disease, stage 5; I42.9 Cardiomyopathy, unspecified; I48.0 Paroxysmal atrial fibrillation; I46.2 Cardiac arrest due to underlying cardiac condition; E03.9 Hypothyroidism, unspecified; E78.00 Pure hypercholesterolemia, unspecified; I25.10 Atherosclerotic heart disease of native coronary artery without angina pectoris; I49.3 Ventricular premature depolarization; F32.A Depression, unspecified; I95.9 Hypotension, unspecified; Z20.822 Contact with and (suspected) exposure to COVID-19; R25.8 Other abnormal involuntary movements; R55 Syncope and collapse; E78.5 Hyperlipidemia, unspecified; I44.0 Atrioventricular block, first degree; I49.5 Sick sinus syndrome; Z85.46 Personal history of malignant neoplasm of prostate; Z85.51 Personal history of malignant neoplasm of bladder; Z90.5 Acquired absence of kidney; Z88.2 Allergy status to sulfonamides; Z79.899 Other long term (current) drug therapy
CPT/HCPCS: 36415; 71045; 80053; 83735; 83880; 84484; 85025; 85610; 87081; 87635; 93005; 93458; 99152; 99285; A4620; A5120; C1769; C1894; C9803; G0378; J1644; J2001; J2250; J3010; J3490; J7030; Q9967

== ENCOUNTER 2022-09-27 12:50 | Emergency (ER) | payer MEDICARE, BC ==
[~2022-09-27] VITALS: Ht 177.8 cm; Wt 72.0 kg
[~2022-09-27 12:50] MED LIST changes: +ASPI-1071 PO; +ATOR20TA66 PO; -FLEC100T2 PO; +FLUT15CR7 TOP; -FURO20TA4 PO; -LORA-268 PO; -LOVA20TA2 PO; +METO-395 PO; -SOTA80TA73 PO
[2022-09-27] MEDS ORDERED: azithromycin/NS 500mg/250ml 250 ML IV ONE (14:20)
[2022-09-27] MEDS ORDERED: CefTRIAXone 2gm/D5W 50ml BAG 50 ML IV ONE (14:20)
[2022-09-27 14:30] LABS: BASOPHILS % (AUTO) 0.7 % (0-1); EOSINOPHILS # (AUTO) 0.1 X10'3 (0-0.9); HEMATOCRIT 34.5 % (42.0-52.0); HEMOGLOBIN 11.6 g/dl (14.0-17.9); LYMPHOCYTES # (AUTO) 0.3 X10'3 (1.1-4.8); LYMPHOCYTES % (AUTO) 5.2 % (21-51); MEAN CORPUSCULAR HEMOGLOBIN 34.8 PG (27.0-31.0); MEAN CORPUSCULAR HGB CONC 33.6 g/dL (33.0-36.5); MEAN CORPUSCULAR VOLUME 103.5 FL (78-98); MEAN PLATELET VOLUME 8.4 FL (7.4-10.4); MONOCYTES # (AUTO) 0.6 X10'3 (0-0.9); MONOCYTES % (AUTO) 8.8 % (2-12); NEUTROPHILS # (AUTO) 5.5 X10'3 (1.8-7.7); NEUTROPHILS % (AUTO) 84.3 % (42-75); PLATELET COUNT 137 X10'3 (140-440); RED BLOOD COUNT 3.34 X10'6 (4.70-6.10); RED CELL DISTRIBUTION WIDTH 17.9 % (11.5-14.5); WHITE BLOOD COUNT 6.5 X10'3 (4.5-11.0)
--- NOTE | 2022-09-27 14:45 | NUR ---
SPOKE TO [facility] AT THIS TIME, AND THEY STATED TRANSISSION OF INTEROGATION WAS SUCCESSFUL.
[2022-09-27 14:52] LABS: ALANINE AMINOTRANSFERASE 35 U/L (12-78); ALBUMIN 2.6 G/DL (3.4-5.0); ALBUMIN/GLOBULIN RATIO 0.8 (1.1-1.5); ALKALINE PHOSPHATASE 54 IU/L (46-116); ANION GAP 8 (8-16); ASPARTATE AMINO TRANSFERASE 25 U/L (10-37); BILIRUBIN,TOTAL 0.7 MG/DL (0.1-1.0); BLOOD UREA NITROGEN 22 MG/DL (7-18); BUN/CREATININE RATIO 12.8 (5.4-32.0); CALCIUM 8.6 MG/DL (8.5-10.1); CHLORIDE 107 MMOL/L (99-107); CREATININE 1.72 MG/DL (0.60-1.10); GLUCOSE 119 MG/DL (70-104); POTASSIUM 4.4 MMOL/L (3.5-5.1); SODIUM 144 MMOL/L (135-145); TOTAL PROTEIN 5.8 G/DL (6.4-8.2); eGFR 38 ML/MIN
[2022-09-27 14:59] LABS: MAGNESIUM 1.9 MG/DL (1.5-2.4)
[2022-09-27] MEDS ORDERED: AMOX-580 PO (15:38)
[2022-09-27 17:53] VITALS: BP 138/73
== END 2022-09-27 17:56 | disposition home or self-care (01) ==
LOC: ER 12:50
DX: I50.23 Acute on chronic systolic (congestive) heart failure (principal); J18.9 Pneumonia, unspecified organism; E78.00 Pure hypercholesterolemia, unspecified; Z88.2 Allergy status to sulfonamides; Z79.899 Other long term (current) drug therapy
CPT/HCPCS: 36415; 71045; 80053; 83605; 83735; 83880; 84145; 84484; 85025; 87040; 87077; 93005; 96365; 96368; 99285; J0456; J0696